=== PATIENT | female | born 1935 | race Caucasian/White ===

== ENCOUNTER 2021-05-24 14:30 | Emergency (ER) | payer MEDICARE ==
[~2021-05-24] VITALS: Ht 162.6 cm; Wt 88.5 kg
[~2021-05-24 14:30] MED LIST: AMLODIPINE BESY10 MG PO; ASPIRIN81 MG PO; HYDRALAZINE HCL25 MG PO; ISOSORBIDE MONO30 MG PO; LEVOTHYROXINE112 MCG PO; LIPITOR10 MG PO; LOSARTAN POTAS100 MG PO; POTASSIUM CHLO10 ME1 PO; WARFARIN SODIUM1 MG PO
[2021-05-24] MEDS ORDERED: SODIUM CHLORIDE 0.9% 1000ML 500 ML IV STA (14:40)
[2021-05-24 15:00] LABS: BASOPHILS # (AUTO) 0.1 (0.0-0.1); BASOPHILS % 0.6 % (0.0-1.0); EOSINOPHILS # (AUTO) 0.1 (0.0-0.4); EOSINOPHILS % 0.9 % (0.0-6.0); HEMATOCRIT 33.1 % (34.2-44.1); HEMOGLOBIN 10.5 g/dL (12.0-16.0); LYMPHOCYTES # (AUTO) 1.6 (1.0-3.2); LYMPHOCYTES % 20.1 % (18.0-39.1); MEAN CORPUSCULAR HEMOGLOBIN 31.1 pg (28-32); MEAN CORPUSCULAR HGB CONC 31.7 g/dL (31-35); MEAN CORPUSCULAR VOLUME 97.9 fL (81-99); MONOCYTES # (AUTO) 0.6 (0.2-0.8); MONOCYTES % 8.1 % (4.4-11.3); NEUTROPHILS # (AUTO) 5.4 (2.1-6.9); PLATELET COUNT 261 x10e3/uL (140-360); RED BLOOD COUNT 3.38 x10e6/uL (3.6-5.1); RED CELL DISTRIBUTION WIDTH 14.5 % (11.7-14.4)
[2021-05-24 15:12] LABS: INR 1.79; PARTIAL THROMBOPLASTIN TIME 33.5 seconds (23.8-35.5); PROTHROMBIN TIME 22.2 seconds (11.9-14.5)
[2021-05-24 15:20] LABS: ALBUMIN 3.6 g/dL (3.5-5.0); ALBUMIN/GLOBULIN RATIO 1.2 (0.8-2.0); ANION GAP 14.8 mmol/L (8-16); CALCIUM 9.3 mg/dL (8.4-10.2); CREATININE, SERUM 1.87 mg/dL (0.57-1.11)
[2021-05-24 15:22] LABS: POTASSIUM 2.8 mmol/L (3.5-5.1)
[2021-05-24 15:26] LABS: CREATINE KINASE MB 2.8 ng/mL (0-5.0)
[2021-05-24] MEDS ORDERED: POTASSIUM CHLORIDE 20MEQ/100ML 100 ML IV ONE (15:30)
[2021-05-24] MEDS ORDERED: POTASSIUM CHLORIDE 10MEQ EA PO ONE (15:30)
[2021-05-24] MEDS ORDERED: SODIUM CHLORIDE 0.9% 250ML 250 ML ONE (15:48)
[2021-05-24 18:47] VITALS: BP 165/67
== END 2021-05-24 18:49 | disposition home or self-care (01) ==
LOC: ER 14:39
DX: R19.7 Diarrhea, unspecified (principal); E87.6 Hypokalemia; I10 Essential (primary) hypertension; E11.9 Type 2 diabetes mellitus without complications; E78.5 Hyperlipidemia, unspecified; Z20.822 Contact with and (suspected) exposure to COVID-19; F41.9 Anxiety disorder, unspecified; K21.9 Gastro-esophageal reflux disease without esophagitis; Z86.73 Personal history of transient ischemic attack (TIA), and cerebral infarction without residual deficits
CPT/HCPCS: 36415; 71045; 74176; 80053; 82550; 82553; 84484; 85025; 85610; 85730; 86850; 86900; 93005; 99284; C9113; J3480; J7030; J7050; U0002

== ENCOUNTER 2021-12-22 17:16 | Inpatient (IN) | payer MEDICARE ==
[~2021-12-22] VITALS: Ht 162.6 cm; Wt 88.1 kg
[2021-12-22] MEDS ORDERED: SODIUM CHLORIDE 0.9% 1000ML 1,000 ML IV ONE (17:30)
[2021-12-22] MEDS ORDERED: ACETAMINOPHEN 325 MG TAB PO ONE (17:30)
[2021-12-22 18:11] LABS: BASOPHILS % 0.2 % (0.0-1.0); HEMATOCRIT 30.5 % (34.2-44.1); HEMOGLOBIN 9.7 g/dL (12.0-16.0); LYMPHOCYTES # (AUTO) 0.3 (1.0-3.2); LYMPHOCYTES % 2.2 % (18.0-39.1); MEAN CORPUSCULAR HEMOGLOBIN 31.1 pg (28-32); MEAN CORPUSCULAR HGB CONC 31.8 g/dL (31-35); MEAN CORPUSCULAR VOLUME 97.8 fL (81-99); MONOCYTES # (AUTO) 0.9 (0.2-0.8); MONOCYTES % 6.7 % (4.4-11.3); NEUTROPHILS # (AUTO) 11.7 (2.1-6.9); NEUTROPHILS % 90.4 % (38.7-80.0); PLATELET COUNT 206 x10e3/uL (140-360); RED BLOOD COUNT 3.12 x10e6/uL (3.6-5.1); RED CELL DISTRIBUTION WIDTH 13.2 % (11.7-14.4)
[2021-12-22 18:28] LABS: COLOR,URINE YELLOW (YELLOW)
[2021-12-22 18:29] LABS: CLARITY,URINE SL CLOUDY (CLEAR); KETONES,URINE NEGATIVE (NEGATIVE); LEUKOCYTE ESTERASE ,URINE SMALL (NEGATIVE); NITRITE,URINE NEGATIVE (NEGATIVE); PROTEIN,URINE DIPSTICK 2+ (NEGATIVE); URINE UROBILINOGEN 0.2 mg/dL (0.2 - 1)
[2021-12-22 18:34] LABS: BACTERIA,URINE MODERATE /HPF
[2021-12-22 18:37] LABS: ALBUMIN 2.5 g/dL (3.5-5.0); ALBUMIN/GLOBULIN RATIO 0.6 (0.8-2.0); ANION GAP 17.3 mmol/L (8-16); CALCIUM 8.4 mg/dL (8.4-10.2); CREATININE, SERUM 2.03 mg/dL (0.57-1.11)
[2021-12-22 18:43] LABS: CREATINE KINASE MB 0.8 ng/mL (0-5.0); POTASSIUM 2.3 mmol/L (3.5-5.1)
[2021-12-22] MEDS ORDERED: POTASSIUM CHLORIDE 20 MEQ TAB CR PO STA (19:00)
[2021-12-22] MEDS ORDERED: ONDANSETRON HCL INJ 2MG/ML 2ML 2 MG/ML VIAL IV PRN (19:15)
[2021-12-22] MEDS ORDERED: ACETAMINOPHEN 325 MG TAB PO PRN (19:15)
[2021-12-22] MEDS: KCL 20MEQ/.9 SOD CHL 1,000 ML IV SCH (19:50)
[2021-12-22 22:05] VITALS: BP 149/53
[2021-12-22] MEDS ORDERED: WARFARIN SODIUM10 MG PO (22:45)
[2021-12-22] MEDS ORDERED: ASPIRIN81 MG PO (22:45)
[2021-12-22] MEDS ORDERED: CITALOPRAM HBR40 MG PO (22:48)
[2021-12-22] MEDS ORDERED: PANTOPRAZOLE SO40 MG PO (22:48)
[2021-12-22] MEDS ORDERED: SERTRALINE HCL50 MG PO (22:48)
[2021-12-22 22:58] VITALS: BP 149/53
[2021-12-22 23:04] VITALS: BP 149/53
[2021-12-23] VITALS (7 sets, daily range): BP systolic 134–172; BP diastolic 54–98
[2021-12-23] MEDS: LEVOTHYROXINE SODIUM 112 MCG TAB PO SCH (05:59)
[2021-12-23] MEDS: KCL 20MEQ/.9 SOD CHL 1,000 ML IV SCH (05:59)
[2021-12-23 06:41] LABS: BASOPHILS % 0.3 % (0.0-1.0); EOSINOPHILS % 0.1 % (0.0-6.0); HEMOGLOBIN 9.2 g/dL (12.0-16.0); LYMPHOCYTES # (AUTO) 0.6 (1.0-3.2); LYMPHOCYTES % 5.4 % (18.0-39.1); MEAN CORPUSCULAR HEMOGLOBIN 30.8 pg (28-32); MEAN CORPUSCULAR HGB CONC 30.7 g/dL (31-35); MEAN CORPUSCULAR VOLUME 100.3 fL (81-99); MONOCYTES % 8.5 % (4.4-11.3); NEUTROPHILS # (AUTO) 10.1 (2.1-6.9); NEUTROPHILS % 85.4 % (38.7-80.0); PLATELET COUNT 179 x10e3/uL (140-360); RED BLOOD COUNT 2.99 x10e6/uL (3.6-5.1); RED CELL DISTRIBUTION WIDTH 13.4 % (11.7-14.4)
[2021-12-23 07:24] LABS: ALBUMIN 2.2 g/dL (3.5-5.0); ALBUMIN/GLOBULIN RATIO 0.6 (0.8-2.0); ANION GAP 15.8 mmol/L (8-16); CALCIUM 8.2 mg/dL (8.4-10.2); CREATININE, SERUM 1.76 mg/dL (0.57-1.11); MAGNESIUM 1.4 MG/DL (1.3-2.1); PHOSPHORUS 3.1 MG/DL (2.3-4.7)
[2021-12-23 07:29] LABS: POTASSIUM 2.8 mmol/L (3.5-5.1)
[2021-12-23 08:03] LABS: THYROID STIMULATING HORMONE 0.139 uIU/mL (0.350-4.940)
[2021-12-23 08:06] LABS: CREATINE KINASE MB 1.9 ng/mL (0-5.0)
[2021-12-23] MEDS ORDERED: POTASSIUM CHLORIDE 20 MEQ TAB CR PO ONE (08:30)
[2021-12-23] MEDS ORDERED: MAGNESIUM SULFATE 2GM/50ML IV ONE (08:45)
[2021-12-23] MEDS ORDERED: AMLODIPINE BESYLATE 10 MG TAB PO SCH (09:00)
[2021-12-23] MEDS ORDERED: HYDRALAZINE HCL 25 MG TAB PO SCH (09:00)
[2021-12-23] MEDS: ISOSORBIDE MONONITRATE 30 MG TAB CR PO SCH (09:18)
[2021-12-23] MEDS: KCL 40MEQ/0.9% SOD CHL 1,000 ML IV SCH ×2 (09:30→18:46)
[2021-12-23] MEDS ORDERED: MAGNESIUM SULFATE 2GM/50ML 50 ML IV ONE (09:30)
[2021-12-23] MEDS: MAGNESIUM OXIDE 400 MG TAB PO SCH ×2 (09:35→17:00)
[2021-12-23 15:19] LABS: CREATINE KINASE MB 2.4 ng/mL (0-5.0)
[2021-12-23] MEDS: ATORVASTATIN 20 MG TAB PO SCH (22:07)
[2021-12-23] MEDS: HYDRALAZINE HCL 25 MG TAB PO SCH (22:08)
[2021-12-24] VITALS (7 sets, daily range): BP systolic 143–183; BP diastolic 60–96
[2021-12-24] MEDS: KCL 40MEQ/0.9% SOD CHL 1,000 ML IV SCH ×3 (04:24→20:05)
[2021-12-24 07:07] LABS: ANION GAP 13.4 mmol/L (8-16); CREATININE, SERUM 1.43 mg/dL (0.57-1.11); POTASSIUM 3.4 mmol/L (3.5-5.1)
[2021-12-24 07:45] LABS: BASOPHILS # (AUTO) 0.1 (0.0-0.1); BASOPHILS % 0.5 % (0.0-1.0); EOSINOPHILS # (AUTO) 0.1 (0.0-0.4); HEMATOCRIT 29.3 % (34.2-44.1); HEMOGLOBIN 9.3 g/dL (12.0-16.0); LYMPHOCYTES # (AUTO) 0.9 (1.0-3.2); LYMPHOCYTES % 8.3 % (18.0-39.1); MEAN CORPUSCULAR HGB CONC 31.7 g/dL (31-35); MEAN CORPUSCULAR VOLUME 97.7 fL (81-99); MONOCYTES # (AUTO) 1.1 (0.2-0.8); MONOCYTES % 9.9 % (4.4-11.3); NEUTROPHILS # (AUTO) 8.7 (2.1-6.9); NEUTROPHILS % 79.5 % (38.7-80.0); PLATELET COUNT 214 x10e3/uL (140-360); RED CELL DISTRIBUTION WIDTH 13.6 % (11.7-14.4)
[2021-12-24] MEDS ORDERED: IOPAMIDOL 610MG/1ML 300 MG/ML VIAL IV ONE (07:45)
[2021-12-24] MEDS ORDERED: BELLADONNA/OPIUM 30 MG SUPP RC ONE (07:45)
[2021-12-24] MEDS ORDERED: LABETALOL HCL 20 ML ONE (09:14)
[2021-12-24] MEDS ORDERED: FENTANYL CITRATE/PF 100MCG/2 ML INJ ONE (09:19)
[2021-12-24 09:28] LABS: INR 2.3
[2021-12-24 09:29] LABS: PARTIAL THROMBOPLASTIN TIME 55.8 seconds (23.8-35.5)
[2021-12-24] MEDS: LEVOTHYROXINE SODIUM 112 MCG TAB PO SCH (09:32)
[2021-12-24] MEDS: HYDRALAZINE HCL 25 MG TAB PO SCH ×2 (10:13→16:39)
[2021-12-24] MEDS: MAGNESIUM OXIDE 400 MG TAB PO SCH ×2 (10:13→16:39)
[2021-12-24] MEDS: ISOSORBIDE MONONITRATE 30 MG TAB CR PO SCH (10:13)
[2021-12-24] MEDS ORDERED: PROPOFOL IV EMULSION 10 MG/ML 20 ML VIAL ONE (13:20)
[2021-12-24] MEDS ORDERED: SEVOFLURANE INHAL SOLN 250 ML PEN BTL ONE (13:20)
[2021-12-24] MEDS ORDERED: POVIDONE IODINE 0.05% 0.05 % ML PO ONE (13:20)
[2021-12-24] MEDS ORDERED: LIDOCAINE HCL 2% LOCAL INJ 5 ML SDV VIAL INJ ONE (13:20)
[2021-12-24] MEDS ORDERED: DEXAMETHASONE SOD PHOS INJ 4 MG/ML SDV ONE (13:20)
[2021-12-24] MEDS: ATORVASTATIN 20 MG TAB PO SCH (20:05)
[2021-12-25] VITALS (7 sets, daily range): BP systolic 136–198; BP diastolic 59–97
[2021-12-25 07:10] LABS: BASOPHILS % 0.2 % (0.0-1.0); EOSINOPHILS % 0.3 % (0.0-6.0); HEMATOCRIT 27.3 % (34.2-44.1); HEMOGLOBIN 8.4 g/dL (12.0-16.0); LYMPHOCYTES # (AUTO) 1.1 (1.0-3.2); LYMPHOCYTES % 11.9 % (18.0-39.1); MEAN CORPUSCULAR HEMOGLOBIN 30.9 pg (28-32); MEAN CORPUSCULAR HGB CONC 30.8 g/dL (31-35); MEAN CORPUSCULAR VOLUME 100.4 fL (81-99); MONOCYTES # (AUTO) 0.8 (0.2-0.8); MONOCYTES % 9.2 % (4.4-11.3); NEUTROPHILS % 77.2 % (38.7-80.0); PLATELET COUNT 223 x10e3/uL (140-360); RED BLOOD COUNT 2.72 x10e6/uL (3.6-5.1); RED CELL DISTRIBUTION WIDTH 13.7 % (11.7-14.4)
[2021-12-25 07:32] LABS: ANION GAP 11.6 mmol/L (8-16); CALCIUM 8.6 mg/dL (8.4-10.2); CREATININE, SERUM 1.18 mg/dL (0.57-1.11); POTASSIUM 3.6 mmol/L (3.5-5.1)
[2021-12-25] MEDS: LEVOTHYROXINE SODIUM 112 MCG TAB PO SCH (08:59)
[2021-12-25] MEDS: HYDRALAZINE HCL 25 MG TAB PO SCH ×2 (08:59→16:46)
[2021-12-25] MEDS: ISOSORBIDE MONONITRATE 30 MG TAB CR PO SCH (08:59)
[2021-12-25] MEDS: MAGNESIUM OXIDE 400 MG TAB PO SCH ×2 (09:00→16:46)
[2021-12-25] MEDS: CEFEPIME 2 GM in SODIUM CHLORIDE 0.9% 100 ML IV SCH ×2 (10:15→20:36)
[2021-12-25] MEDS: KCL 40MEQ/0.9% SOD CHL 1,000 ML IV SCH ×2 (10:30→19:28)
[2021-12-25] MEDS: ATORVASTATIN 20 MG TAB PO SCH (20:35)
[2021-12-26] VITALS (9 sets, daily range): BP systolic 160–177; BP diastolic 61–83
[2021-12-26] MEDS: KCL 40MEQ/0.9% SOD CHL 1,000 ML IV SCH (04:59)
[2021-12-26] MEDS: CEFEPIME 2 GM in SODIUM CHLORIDE 0.9% 100 ML IV SCH (08:33)
[2021-12-26] MEDS: LEVOTHYROXINE SODIUM 112 MCG TAB PO SCH (08:33)
[2021-12-26] MEDS: ISOSORBIDE MONONITRATE 30 MG TAB CR PO SCH (08:33)
[2021-12-26] MEDS: HYDRALAZINE HCL 25 MG TAB PO SCH ×2 (08:34→18:09)
[2021-12-26] MEDS: MAGNESIUM OXIDE 400 MG TAB PO SCH ×2 (08:34→18:09)
[2021-12-26] MEDS: ATORVASTATIN 20 MG TAB PO SCH (21:18)
[2021-12-27 00:45] VITALS: BP 148/69
[2021-12-27 05:02] LABS: BASOPHILS # (AUTO) 0.1 (0.0-0.1); BASOPHILS % 0.8 % (0.0-1.0); EOSINOPHILS # (AUTO) 0.2 (0.0-0.4); EOSINOPHILS % 2.5 % (0.0-6.0); HEMOGLOBIN 8.9 g/dL (12.0-16.0); LYMPHOCYTES # (AUTO) 1.6 (1.0-3.2); LYMPHOCYTES % 16.8 % (18.0-39.1); MEAN CORPUSCULAR HEMOGLOBIN 30.5 pg (28-32); MEAN CORPUSCULAR HGB CONC 30.7 g/dL (31-35); MEAN CORPUSCULAR VOLUME 99.3 fL (81-99); MONOCYTES # (AUTO) 0.9 (0.2-0.8); MONOCYTES % 9.2 % (4.4-11.3); NEUTROPHILS # (AUTO) 6.3 (2.1-6.9); NEUTROPHILS % 65.3 % (38.7-80.0); PLATELET COUNT 275 x10e3/uL (140-360); RED BLOOD COUNT 2.92 x10e6/uL (3.6-5.1); RED CELL DISTRIBUTION WIDTH 13.8 % (11.7-14.4)
[2021-12-27 05:19] VITALS: BP 154/89
[2021-12-27 05:43] LABS: ANION GAP 14.2 mmol/L (8-16); CALCIUM 8.2 mg/dL (8.4-10.2); CREATININE, SERUM 0.95 mg/dL (0.57-1.11); POTASSIUM 3.2 mmol/L (3.5-5.1)
[2021-12-27] MEDS: LEVOTHYROXINE SODIUM 112 MCG TAB PO SCH (06:23)
[2021-12-27] MEDS: HYDRALAZINE HCL 25 MG TAB PO SCH (08:04)
[2021-12-27] MEDS: MAGNESIUM OXIDE 400 MG TAB PO SCH (08:04)
[2021-12-27] MEDS: ISOSORBIDE MONONITRATE 30 MG TAB CR PO SCH (08:05)
[2021-12-27 08:43] VITALS: BP 186/65
[2021-12-27 08:51] VITALS: BP 186/65
[2021-12-27] MEDS ORDERED: POTASSIUM CHLORIDE 10MEQ EA PO ONE (10:00)
[2021-12-27 12:17] VITALS: BP 137/65
== END 2021-12-27 14:00 | disposition home or self-care (01) | DRG 853 ==
LOC: ER 17:25 → ERHOLD 19:08 → MED/SURG2 21:50
PROVIDERS: ADMIT Internal Medicine; ATTEND Internal Medicine
PROC: 0T768ZZ Dilation of Right Ureter, Via Natural or Artificial Opening Endoscopic (ICD-10-PCS; 2021-12-24)
PROC: BT141ZZ Fluoroscopy of Kidneys, Ureters and Bladder using Low Osmolar Contrast (ICD-10-PCS; 2021-12-24)
PROC: 0T778DZ Dilation of Left Ureter with Intraluminal Device, Via Natural or Artificial Opening Endoscopic (ICD-10-PCS; principal; 2021-12-24 08:02)
PROC: 3E03329 Introduction of Other Anti-infective into Peripheral Vein, Percutaneous Approach (ICD-10-PCS; 2021-12-25)
DX: A41.59 Other Gram-negative sepsis (principal); G92.8 Other toxic encephalopathy; N17.0 Acute kidney failure with tubular necrosis; N13.6 Pyonephrosis; Z16.24 Resistance to multiple antibiotics; I69.354 Hemiplegia and hemiparesis following cerebral infarction affecting left non-dominant side; B96.4 Proteus (mirabilis) (morganii) as the cause of diseases classified elsewhere; B96.89 Other specified bacterial agents as the cause of diseases classified elsewhere; E87.8 Other disorders of electrolyte and fluid balance, not elsewhere classified; F41.9 Anxiety disorder, unspecified; K21.9 Gastro-esophageal reflux disease without esophagitis; M19.90 Unspecified osteoarthritis, unspecified site; E83.51 Hypocalcemia; N39.41 Urge incontinence; E87.6 Hypokalemia; E66.9 Obesity, unspecified; Z68.33 Body mass index [BMI] 33.0-33.9, adult; D50.9 Iron deficiency anemia, unspecified; I12.9 Hypertensive chronic kidney disease with stage 1 through stage 4 chronic kidney disease, or unspecified chronic kidney disease; N18.9 Chronic kidney disease, unspecified; N95.2 Postmenopausal atrophic vaginitis; M17.12 Unilateral primary osteoarthritis, left knee; Z20.822 Contact with and (suspected) exposure to COVID-19; E78.5 Hyperlipidemia, unspecified; M17.10 Unilateral primary osteoarthritis, unspecified knee; F41.0 Panic disorder [episodic paroxysmal anxiety]
CPT/HCPCS: 36415; 71045; 71250; 74176; 74420; 78707; 80048; 80053; 81001; 82270; 82550; 82553; 82607; 82746; 83036; 83540; 83605; 83735; 83970; 84100; 84443; 84466; 84484; 85025; 85610; 85730; 87040; 87071; 87086; 87186; 87205; 93005; 96361; 99284; A9562; C1758; C1769; C2617; J0456; J0692; J0696; J1100; J2001; J3010; J3475; J7030; J7050

== ENCOUNTER 2022-01-09 12:19 | Emergency (ER) | payer MEDICARE ==
[~2022-01-09] VITALS: Ht 162.6 cm; Wt 88.0 kg
[~2022-01-09 12:19] MED LIST changes: +CITALOPRAM HBR40 MG PO; +PANTOPRAZOLE SO40 MG PO; +SERTRALINE HCL50 MG PO; +WARFARIN SODIUM10 MG PO
[2022-01-09] MEDS ORDERED: ONDANSETRON HCL INJ 2MG/ML 2ML 2 MG/ML VIAL IV STA (12:23)
[2022-01-09] MEDS ORDERED: KETOROLAC TROMETHAMINE 30 MG/ML VIAL IV STA (12:23)
[2022-01-09 14:34] LABS: CLARITY,URINE SL CLOUDY (CLEAR); COLOR,URINE YELLOW (YELLOW); KETONES,URINE NEGATIVE (NEGATIVE); LEUKOCYTE ESTERASE ,URINE SMALL (NEGATIVE); NITRITE,URINE NEGATIVE (NEGATIVE); PROTEIN,URINE DIPSTICK 2+ (NEGATIVE); URINE UROBILINOGEN 0.2 mg/dL (0.2 - 1)
[2022-01-09 14:39] LABS: BASOPHILS # (AUTO) 0.1 (0.0-0.1); BASOPHILS % 1.9 % (0.0-1.0); EOSINOPHILS # (AUTO) 0.1 (0.0-0.4); EOSINOPHILS % 1.3 % (0.0-6.0); HEMATOCRIT 27.4 % (34.2-44.1); HEMOGLOBIN 8.5 g/dL (12.0-16.0); LYMPHOCYTES # (AUTO) 1.2 (1.0-3.2); LYMPHOCYTES % 25.7 % (18.0-39.1); MEAN CORPUSCULAR HEMOGLOBIN 30.7 pg (28-32); MEAN CORPUSCULAR VOLUME 98.9 fL (81-99); MONOCYTES # (AUTO) 0.3 (0.2-0.8); MONOCYTES % 6.6 % (4.4-11.3); NEUTROPHILS % 64.3 % (38.7-80.0); PLATELET COUNT 222 x10e3/uL (140-360); RED BLOOD COUNT 2.77 x10e6/uL (3.6-5.1); RED CELL DISTRIBUTION WIDTH 14.1 % (11.7-14.4)
[2022-01-09 14:59] LABS: BACTERIA,URINE MODERATE /HPF; EPITHELIAL CELLS,URINE FEW /LPF
[2022-01-09 15:01] LABS: ALBUMIN 2.8 g/dL (3.5-5.0); ALBUMIN/GLOBULIN RATIO 0.9 (0.8-2.0); ANION GAP 12.5 mmol/L (8-16); CALCIUM 8.5 mg/dL (8.4-10.2); CREATININE, SERUM 1.22 mg/dL (0.57-1.11); POTASSIUM 3.5 mmol/L (3.5-5.1)
[2022-01-09] MEDS ORDERED: AZO STANDARD95 MG PO (15:30)
[2022-01-09] MEDS ORDERED: CEFUROXIME500 MG PO (15:36)
[2022-01-09] MEDS ORDERED: OXYBUTYNIN CHLOR5 MG PO (15:36)
[2022-01-09 15:58] VITALS: BP 155/75
== END 2022-01-09 15:56 | disposition home or self-care (01) ==
LOC: ER 12:23
DX: R10.9 Unspecified abdominal pain (principal); N20.0 Calculus of kidney; I10 Essential (primary) hypertension; E11.9 Type 2 diabetes mellitus without complications; E78.5 Hyperlipidemia, unspecified; K21.9 Gastro-esophageal reflux disease without esophagitis; F41.9 Anxiety disorder, unspecified; R94.31 Abnormal electrocardiogram [ECG] [EKG]; Z86.73 Personal history of transient ischemic attack (TIA), and cerebral infarction without residual deficits
CPT/HCPCS: 36415; 74176; 80053; 81001; 85025; 87086; 93005; 99284; J1885; J2405

== ENCOUNTER → 2022-02-10 | Day surgery (SDC) | payer MEDICARE ==
[2022-02-08 13:10] LABS: BASOPHILS # (AUTO) 0.1 (0.0-0.1); BASOPHILS % 0.6 % (0.0-1.0); EOSINOPHILS % 0.3 % (0.0-6.0); HEMATOCRIT 30.1 % (34.2-44.1); HEMOGLOBIN 9.2 g/dL (12.0-16.0); LYMPHOCYTES # (AUTO) 0.9 (1.0-3.2); LYMPHOCYTES % 9.2 % (18.0-39.1); MEAN CORPUSCULAR HEMOGLOBIN 31.5 pg (28-32); MEAN CORPUSCULAR HGB CONC 30.6 g/dL (31-35); MEAN CORPUSCULAR VOLUME 103.1 fL (81-99); MONOCYTES # (AUTO) 0.9 (0.2-0.8); MONOCYTES % 8.8 % (4.4-11.3); NEUTROPHILS # (AUTO) 7.8 (2.1-6.9); NEUTROPHILS % 80.8 % (38.7-80.0); PLATELET COUNT 197 x10e3/uL (140-360); RED BLOOD COUNT 2.92 x10e6/uL (3.6-5.1); RED CELL DISTRIBUTION WIDTH 14.9 % (11.7-14.4)
[2022-02-08 13:37] LABS: ANION GAP 16.8 mmol/L (8-16); CALCIUM 8.9 mg/dL (8.4-10.2); CREATININE, SERUM 1.37 mg/dL (0.57-1.11)
[2022-02-08 14:13] LABS: POTASSIUM 2.8 mmol/L (3.5-5.1)
[~2022-02-10] MED LIST changes: +ATROPINE SULFATE 1 MG/ML VIAL ONE; +AZO STANDARD95 MG PO; +CEFTRIAXONE 1 GM VIAL ONE; +CEFUROXIME500 MG PO; +DEXAMETHASONE SOD PHOS INJ 4 MG/ML SDV ONE; +EPHEDRINE SULFATE INJ 50 MG/ML VIAL ONE; +GLYCOPYRROLATE INJ 0.2 MG/ML VIAL ONE; +LIDOCAINE HCL 2% LOCAL INJ 5 ML SDV VIAL INJ ONE; +ONDANSETRON HCL INJ 2MG/ML 2ML 2 MG/ML VIAL ONE; +OXYBUTYNIN CHLOR5 MG PO; +POVIDONE IODINE 0.05% 0.05 % ML PO ONE; +PROPOFOL IV EMULSION 10 MG/ML 20 ML VIAL ONE; +SEVOFLURANE INHAL SOLN 250 ML PEN BTL ONE
[2022-02-10 09:59] LABS: INR 1.11; PROTHROMBIN TIME 15.3 seconds (11.9-14.5)
[2022-02-10 10:00] LABS: PARTIAL THROMBOPLASTIN TIME 25.7 seconds (23.8-35.5)
[2022-02-10 10:11] LABS: ANION GAP 16.7 mmol/L (8-16); CALCIUM 8.8 mg/dL (8.4-10.2); CREATININE, SERUM 1.48 mg/dL (0.57-1.11)
[2022-02-10 10:13] LABS: POTASSIUM 2.7 mmol/L (3.5-5.1)
[2022-02-10 13:05] VITALS: BP 190/75
== END | disposition home or self-care (01) ==
LOC: OR 08:51
PROVIDERS: ATTEND Urology
DX: N20.0 Calculus of kidney (principal); Z96.0 Presence of urogenital implants; F32.A Depression, unspecified; I10 Essential (primary) hypertension; E78.5 Hyperlipidemia, unspecified; I48.91 Unspecified atrial fibrillation; E11.9 Type 2 diabetes mellitus without complications; E03.9 Hypothyroidism, unspecified; K21.9 Gastro-esophageal reflux disease without esophagitis; Z01.812 Encounter for preprocedural laboratory examination; Z01.818 Encounter for other preprocedural examination; Z20.822 Contact with and (suspected) exposure to COVID-19; Z79.01 Long term (current) use of anticoagulants; Z79.82 Long term (current) use of aspirin; Z79.899 Other long term (current) drug therapy; Z86.73 Personal history of transient ischemic attack (TIA), and cerebral infarction without residual deficits
CPT/HCPCS: 0223U; 36415 ×2; 50590; 74018; 80048 ×2; 84550; 85025; 85610; 85730; 93005; J0461; J0696; J1100; J2001; J2405; J2704

== ENCOUNTER → 2022-03-01 | Day surgery (SDC) | payer MEDICARE ==
[2022-02-28 10:15] LABS: BASOPHILS # (AUTO) 0.1 (0.0-0.1); BASOPHILS % 0.8 % (0.0-1.0); EOSINOPHILS # (AUTO) 0.1 (0.0-0.4); EOSINOPHILS % 0.8 % (0.0-6.0); HEMATOCRIT 33.1 % (34.2-44.1); HEMOGLOBIN 10.1 g/dL (12.0-16.0); LYMPHOCYTES # (AUTO) 0.9 (1.0-3.2); LYMPHOCYTES % 12.4 % (18.0-39.1); MEAN CORPUSCULAR HEMOGLOBIN 30.4 pg (28-32); MEAN CORPUSCULAR HGB CONC 30.5 g/dL (31-35); MEAN CORPUSCULAR VOLUME 99.7 fL (81-99); MONOCYTES # (AUTO) 0.5 (0.2-0.8); MONOCYTES % 7.2 % (4.4-11.3); NEUTROPHILS # (AUTO) 5.9 (2.1-6.9); NEUTROPHILS % 78.4 % (38.7-80.0); PLATELET COUNT 213 x10e3/uL (140-360); RED BLOOD COUNT 3.32 x10e6/uL (3.6-5.1); RED CELL DISTRIBUTION WIDTH 13.8 % (11.7-14.4)
[2022-02-28 11:04] LABS: ANION GAP 18.1 mmol/L (8-16); CALCIUM 9.4 mg/dL (8.4-10.2); CREATININE, SERUM 1.25 mg/dL (0.57-1.11); POTASSIUM 3.1 mmol/L (3.5-5.1)
[~2022-03-01] MED LIST changes: -ATROPINE SULFATE 1 MG/ML VIAL ONE; -CEFTRIAXONE 1 GM VIAL ONE; -DEXAMETHASONE SOD PHOS INJ 4 MG/ML SDV ONE; -EPHEDRINE SULFATE INJ 50 MG/ML VIAL ONE; +GENTAMICIN 80MG/NS 100 ML 200 ML IV ONE; -GLYCOPYRROLATE INJ 0.2 MG/ML VIAL ONE
[2022-03-01 08:26] LABS: INR 1.14; PROTHROMBIN TIME 15.6 seconds (11.9-14.5)
[2022-03-01 08:27] LABS: PARTIAL THROMBOPLASTIN TIME 30.3 seconds (23.8-35.5)
[2022-03-01 09:50] VITALS: BP 205/91
== END | disposition home or self-care (01) ==
LOC: OR 07:39
PROVIDERS: ATTEND Urology
DX: N20.0 Calculus of kidney (principal); Z96.0 Presence of urogenital implants; E11.9 Type 2 diabetes mellitus without complications; K28.9 Gastrojejunal ulcer, unspecified as acute or chronic, without hemorrhage or perforation; I69.854 Hemiplegia and hemiparesis following other cerebrovascular disease affecting left non-dominant side; I48.91 Unspecified atrial fibrillation; I10 Essential (primary) hypertension; E78.5 Hyperlipidemia, unspecified; F32.A Depression, unspecified; Z01.812 Encounter for preprocedural laboratory examination; Z01.818 Encounter for other preprocedural examination; Z79.01 Long term (current) use of anticoagulants; Z79.82 Long term (current) use of aspirin; Z79.899 Other long term (current) drug therapy
CPT/HCPCS: 36415 ×2; 50590; 74018; 80048; 84132; 84550; 85025; 85610; 85730; J1580; J2001; J2405; J2704